=== PATIENT | male | born 1975 | race Caucasian/White ===

== ENCOUNTER 2023-10-04 01:38 | Emergency (ER) | payer OTHER, SELFPAY ==
[2023-10-04 01:38] VITALS: BMI 24.9
[2023-10-04 01:43] VITALS: BP 155/100
--- NOTE | 2023-10-04 02:03 | ED.GENMED ---
History of Present Illness
<EVELIN Padilla - Last Filed: 10/04/23 03:37>
General
Chief Complaint: Chest Pain
Time Seen by Provider: 10/04/23 01:47
History of Present Illness
History of Present Illness:
Pt is a 48 y/o male with PMHx of DMII, anxiety, tension LORD, HTN, hypothyroid, and HLD presenting for chest pain x1 hour. The patient states it is a dull 1-2/10 located to the midsternal area and does not radiate. He states his son woke him up around
0100 and after he was awake he started having symptoms. He states it did not go away so he decided to drive himself to the ED. He noted he was still having chest pain in the beginning of this exam and states it went away at the end of the exam after
relaxing. He states he has never had symptoms like this in the past. He notes he has not slept well the last two nights and states he is very exhausted. He also states he has been experiencing lots of anxiety recently and the lack of sleep has made
this worse. He states he had increased indigestion after eating fast food tonight and took gasX earlier. He notes he gets tension headaches and took Exedrin at 1730 tonight. He states he does not smoke and alcohol consumption is minimal. He denies
any SOB, diaphoresis, abdominal pain, nausea, vomiting, edema.
Past History
<EVELIN Padilla - Last Filed: 10/04/23 03:37>
Past History
ED Past Medical History: HTN and Hypothyroidism
ED Past Surgical History: None
Social History
Tobacco: Non-smoker
Alcohol: Occasional
Drug: None
Personal:
Living: with family
Employment: Employed
Family History
Family History: Other (Noncontributory)
Phy Exam
<EVELIN Padilla - Last Filed: 10/04/23 03:37>
Physical Exam
Physical Exam:
GENERAL: Patient is alert, talkative, in no apparent distress
EYE: pupils equal and reactive
Throat: Airway intact, no exudates
NECK: Supple, no significant adenopathy.
CARDIAC: Regular rate and rhythm. No murmurs noted.
LUNGS: Clear breath sounds bilaterally, no acute respiratory distress, no wheezes/rales/rhonchi
ABDOMEN: Soft, nondistended, nontender, no cvat
NEUROLOGICAL: Alert and oriented, no focal neuro deficits
SKIN: Warm and dry, skin intact.
MUSCULOSKELETAL: No edema, well perfused. No pain with palpation to chest wall.
PSYCH: Normal and appropriate interaction.
Scores
<Karla Sena DO - Last Filed: 10/04/23 05:06>
Heart Score for Chest Pain Patients
STEMI patient?: No
History: Slightly or Non-Suspicious
ECG: Normal
Age: >45 - <65 years
Risk Factors: 1 or 2 Risk Factors
Troponin: </= Normal Limit
Heart Score for Chest Pain Patients: 2
Heart Score Risk: 2.5% MACE over next 6 weeks
Course
<Billy Guadalupe STPA - Last Filed: 10/04/23 03:37>
Orders/Labs/Results
Orders:
Orders
10/04/23 01:46
Electrocardiogram (*1) Urgent
Reason for Study: Other
Other Reason for Exam: Respiratory Distress
Cardiac Monitoring- Treatment ONCE
EKG- Treatment ONCE
IV Insert/Care/Rem.- Treatment PRN
CR Chest - 2 Views Urgent
Comment:
Reason For Exam: respiratory distress
O2 Therapy [RESP] Urgent
Titrate/Wean O2 to maintain O2 sat greater than (%): 93
Special Instructions: TO MAINTAIN CONTINUOUS O2 SATS >/= 93%
Pulse Ox/cont/shift [RESP] Urgent
Quantity: 1
Special Instructions: continuous pulse ox
10/04/23 02:01
Complete Blood Count/With Diff Urgent
Comprehensive Metabolic Panel Urgent
NT-proBNP Urgent
Troponin I Urgent
10/04/23 02:05
Aspirin Chewable [Low Strength Aspirin] 324 mg PO NOW STA
10/04/23 04:01
Troponin I Urgent
Abnormal Lab Results
10/04/23
02:01
Hgb 12.8 L g/dL
(13.0-18.0)
Hct 37.0 L %
(39.0-52.0)
MCV 77.7 L fL
(80.0-94.0)
MCH 26.9 L pg
(27.0-31.0)
Glucose 126 H mg/dl
(70-99)
10/04/23 02:01
10/04/23 02:01
Vital Signs
Initial and Last Documented VS:
Initial Vital Signs
Temp Pulse Resp BP Pulse Ox
98.3 F 92 20 155/100 99
10/04/23 01:43 10/04/23 01:43 10/04/23 01:43 10/04/23 01:43 10/04/23 01:43
Last Documented Vital Signs
Temp Pulse Resp BP Pulse Ox
98.3 F 74 13 122/77 96
10/04/23 01:43 10/04/23 04:00 10/04/23 04:00 10/04/23 04:00 10/04/23 04:15
<Karla Sena DO - Last Filed: 10/04/23 05:06>
Orders/Labs/Results
Orders:
Orders
10/04/23 01:46
Electrocardiogram (*1) Urgent
Reason for Study: Other
Other Reason for Exam: Respiratory Distress
Cardiac Monitoring- Treatment ONCE
EKG- Treatment ONCE
IV Insert/Care/Rem.- Treatment PRN
CR Chest - 2 Views Urgent
Comment:
Reason For Exam: respiratory distress
O2 Therapy [RESP] Urgent
Titrate/Wean O2 to maintain O2 sat greater than (%): 93
Special Instructions: TO MAINTAIN CONTINUOUS O2 SATS >/= 93%
Pulse Ox/cont/shift [RESP] Urgent
Quantity: 1
Special Instructions: continuous pulse ox
10/04/23 02:01
Complete Blood Count/With Diff Urgent
Comprehensive Metabolic Panel Urgent
NT-proBNP Urgent
Troponin I Urgent
10/04/23 02:05
Aspirin Chewable [Low Strength Aspirin] 324 mg PO NOW STA
10/04/23 04:01
Troponin I Urgent
Abnormal Lab Results
10/04/23
02:01
Hgb 12.8 L g/dL
(13.0-18.0)
Hct 37.0 L %
(39.0-52.0)
MCV 77.7 L fL
(80.0-94.0)
MCH 26.9 L pg
(27.0-31.0)
Glucose 126 H mg/dl
(70-99)
10/04/23 02:01
10/04/23 02:01
Vital Signs
Initial and Last Documented VS:
Initial Vital Signs
Temp Pulse Resp BP Pulse Ox
98.3 F 92 20 155/100 99
10/04/23 01:43 10/04/23 01:43 10/04/23 01:43 10/04/23 01:43 10/04/23 01:43
Last Documented Vital Signs
Temp Pulse Resp BP Pulse Ox
98.3 F 74 13 122/77 96
10/04/23 01:43 10/04/23 04:00 10/04/23 04:00 10/04/23 04:00 10/04/23 04:15
<EVELIN Padilla - Last Filed: 10/04/23 03:37>
*Pulse Oximetry
Patient hypoxic: no
*EKG
Interpreted by ED Provider?: Yes
EKG Intrepretation Date: 10/04/23
Interpretation: normal
Comparison EKG: no comparison EKG present
Heart Rate: 89
Rate: normal
Rhythm: sinus
[place]: normal axis
Interval: normal interval
QRS Pattern: normal QRS
Ischemia: no ischemia
*Sales Research Analyst Interpretation
Rate: Sales Research Analyst- N/A
*Critical Care Note
Total Time (30-74mins, 75-104mins- exclusive of procedures): Not Applicable
<Karla Sean DO - Last Filed: 10/04/23 05:06>
*Radiology
Radiology exam reviewed: preliminary read by ED provider (Chest x-ray is unremarkable. Clear lung gtz. Normal heart size.)
*Sales Research Analyst Interpretation
Rate: normal
Interpretation: normal
Rhythm: sinus
ED Attending Note
<EVELIN Padilla - Last Filed: 10/04/23 03:37>
-
Portions of this chart may have been created with voice recognition software.� Occasional wrong word or��sound alike� substitutions may have occurred due to the inherent limitations of voice recognition software.
<Karla Sena DO - Last Filed: 10/04/23 05:06>
ED Attending Note
Patient seen and examined by attending physician: Yes
I performed the substantive portion of visit, reviewed & personally made and approve the management plan that is documented in note by myself or [place].: Yes
ED Attending Note:
This is a 48-year-old gentleman with history of hypertension, yuh-[id number] diabetes, hyperlipidemia, hypothyroidism, anxiety who presents with mild mid substernal chest discomfort that began around 1230 this morning. Chest pain described
as mild, nonradiating, no associated symptoms and no history of similar episodes of pain. He was awoken from sleep by his son who is being quite loud, online renny with friends. Patient states he awoke uneventfully without chest pain but once he
was up and about he developed substernal chest discomfort. No cough no shortness of breath, no diaphoresis nor palpitations, no nausea, no abdominal nor back pain. He has not taken anything for discomfort but chest pain has persisted and patient
admits to becoming worried and thus presented to the ED.
He follows every 6 months with primary care physician Dr. Alvarenga and states his blood pressure, diabetes, hyperlipidemia are all well-controlled and at goal. He states most recent hemoglobin A1c at 5.8 May of this year.
He has no history of CAD has never been evaluated by ocular pathologist but family history of CAD in his mother who underwent CABG later in life.
He does admit to occasional heartburn but states current chest discomfort feels different from his heartburn.
He admits to frequent burping after dinner last night along with mild gassiness for which she took a Gas-X with improvement.
No recent travel, no leg pain or swelling. No risk factors for thromboembolism.
Lifelong non-smoker and rare alcohol use.
His daily medications include lisinopril, metformin, rosuvastatin, levothyroxine.
He has history of tension headaches and takes [id number] Excedrin sporadically. His last dose was yesterday evening at 5:30 PM.
He has history of anxiety and had been prescribed Lexapro in the past.
GENERAL: 48-year-old gentleman appears his stated age, awake and alert, pleasant, appears in no acute distress. Very mildly anxious but easily communicative. Vital signs within normal limits. Few episodes of burping during initial exam noted.
EYE: anicteric
NECK: Supple, nontender, no meningismus, no significant adenopathy. No JVD.
ENT: oral mucosa is moist. No rhinorrhea.
CARDIAC: Regular rate and rhythm. no murmur. No chest wall tenderness.
LUNGS: Clear breath sounds bilaterally, no acute respiratory distress, no wheezes/rales/rhonchi
ABDOMEN: Soft, nondistended, without focal tenderness, no r/g, no cvat. normoactive BS.
NEUROLOGICAL: Alert and oriented x3, no focal neuro deficits. Gait is steady.
SKIN: Warm and dry, normal color, skin intact. No rash.
MUSCULOSKELETAL: No C/C/E. peripheral pulses are full and equal b/l. No palpable tenderness.
PSYCH: Mildly anxious, easily communicative.
Concern for ACS, GERD, musculoskeletal chest pain.
No respiratory symptoms, no risk factors for thromboembolism. PE, pneumonia are unlikely.
History of hypertension but reportedly well-controlled, and currently well-controlled. Description of chest pain is not consistent with aortic dissection/aneurysm.
EKG shows normal sinus rhythm, normal axis, normal intervals, no acute ST-T wave abnormalities. No previous EKGs to compare.
Labs are pending including troponin.
Will give 324 mg chewable aspirin now and plan to repeat troponin and EKG at 4 AM.
10/04/2023 0505 AM
Patient remains comfortable and chest pain-free.
Labs are unremarkable including negative troponin x 2.
I suspect chest discomfort may have been acid reflux in nature especially in light of intermittent burping.
He does have several risk factors for CAD thus will discharge to home with referral to our chest pain hotline.
Return precautions discussed.
Discharge Plan
Departure
Patient Disposition: Home (Routine Discharge)
Date of Disposition: 10/04/23
Time of Disposition: 05:03
Patient with high blood pressure during this ER visit?: No
Condition: Good
Discharge Problem:
Nonspecific chest pain
Instructions: Chest Pain CBC Follow Up
Prescriptions:
No Action
lisinopril 10 MG tablet
10 mg PO DAILY
levothyroxine 150 MCG tablet
150 mcg PO DAILY
multivitamin [Xqw-Uahnob-Favkd] 1 EACH tablet
1 ea PO DAILY
amoxicillin-pot clavulanate 875 MG/125 MG tablet
1 tab PO Q12 Qty: 20 0RF
Referrals:
Bert Alvarenga MD [Family Provider] - Call in 1-3 days for appt
Interventions
Interventions:
*Risk Screen - Suicide Last Done: 10/04/23 01:43
*General Assessment Last Done: 10/04/23 01:43
*Neglect/Abuse Screening Last Done: 10/04/23 01:43
ED- Fall Risk Assessment Last Done: 10/04/23 01:43
*ED COVID-19 Vaccine History Last Done: 10/04/23 01:43
ED- Cardiac Assessment Last Done: 10/04/23 02:00
Discharge Date and Time
Print Language: [place]
[2023-10-04 02:05] VITALS: BP 127/88
[2023-10-04 02:06] LABS: % Basophils 0.4 % (0-2); % Eosinophils 1.9 % (0-6); % Immature Granulocytes 0.4 % (0-0.5); % Lymphocytes 24.2 % (20.5-51.1); % Monocytes 8.3 % (1.7-9.3); % Neutrophils 64.8 % (42.2-75.2); Absolute Eosinophils 0.1 10^3/uL (0-0.7); Absolute Lymphocytes 1.8 10^3/uL (1.2-3.4); Absolute Monocytes 0.6 10^3/uL (0.1-0.6); Absolute Neutrophils 4.9 10^3/uL (1.4-6.5); Hemoglobin 12.8 g/dL (13.0-18.0); Mean Corp Hgb Conc. 34.6 g/dL (33.0-37.0); Mean Corpuscular Hgb 26.9 pg (27.0-31.0); Mean Corpuscular Volume 77.7 fL (80.0-94.0); Mean Platelet Volume 8.6 fL (7.4-10.4); Nucleated Red Blood Cells % 0 % (-); Platelet Count 241 10^3/uL (130-400); Red Blood Cell Count 4.76 10^6/uL (4.70-6.10); White Blood Cell Count 7.5 10^3/uL (4.8-10.8)
[2023-10-04 02:30] LABS: NT-proBNP < 20.0 pg/ml; Troponin I < 0.012 ng/ml
[2023-10-04] MEDS: LOW STRENGTH ASPIRIN 324 MG PO (02:32)
[2023-10-04 02:34] VITALS: BP 127/87
[2023-10-04 02:38] LABS: ALT (SGPT) 18 U/L (0-50); AST (SGOT) 25 U/L (17-59); Albumin 4.6 g/dl (3.5-5.0); Alkaline Phosphatase 61 U/L (38-126); Blood Urea Nitrogen 13 mg/dl (9-20); Calcium 9.1 mg/dl (8.4-10.2); Carbon Dioxide 30 mmol/L (22-30); Chloride 101 mmol/L (98-107); Estimated Creatinine Clearance 84 ml/min; Glucose 126 mg/dl (70-99); Potassium 3.9 mmol/L (3.5-5.1); Sodium 138 mmol/L (135-145); Total Bilirubin 0.4 mg/dl (0.2-1.3); Total Protein 7.6 g/dl (6.3-8.2); eGFR > 60.00
[2023-10-04 03:00] VITALS: BP 121/82
[2023-10-04 03:29] VITALS: BP 135/83
[2023-10-04 04:00] VITALS: BP 122/77
[2023-10-04 04:38] LABS: Troponin I < 0.012 ng/ml
== END 2023-10-04 05:19 | disposition home or self-care (01) ==
LOC: EMR 01:38
PROVIDERS: EMERGENCY PHYSICIAN Emergency Medicine; FAMILY PHYSICIAN Family Medicine
DX: R07.89 Other chest pain (principal); E11.9 Type 2 diabetes mellitus without complications; F41.9 Anxiety disorder, unspecified; E03.9 Hypothyroidism, unspecified; E78.00 Pure hypercholesterolemia, unspecified; I10 Essential (primary) hypertension; Z79.890 Hormone replacement therapy; Z82.49 Family history of ischemic heart disease and other diseases of the circulatory system; Z95.1 Presence of aortocoronary bypass graft
CPT/HCPCS: 99283; 71046; 80053; 83880; 84484; 85025; 93005